=== PATIENT | male | born 1950 | race Caucasian/White ===

== ENCOUNTER → 2018-07-08 | Outpatient (CLI) | payer BC ==
--- NOTE | 2018-07-08 15:32 | SFUN ---
SLEEP CENTER FOLLOW UP NOTE DATE OF SERVICE: 07/08/2018 A 68-year-old gentleman who has been followed in the Sleep Center to discuss results of diagnostic polysomnogram and following plan. I discussed results of sleep study with the patient in detail. He had very low sleep efficiency. He slept only for 2 hours and 14 minutes, but at the same time sleep study showed that for that period of time, he had 18 episodes of obstructive apneas, 11 episodes of central apneas and 4 episodes of hypopneas with total apnea-hypopnea index 14.7, in REM sleep 65.5 with lowest oxygen level 77.3%. No significant periodic limb movements have been documented. [place] Sleepiness Scale today is 3. MEDICATIONS: Metoprolol, amlodipine with benazepril. PHYSICAL EXAM: Patient in no distress. BP , HR 68, RR 14, oxygen saturation at room air 96%, temperature 97.7 cm. OROPHARYNX: Low position of soft palate. Slight restriction of nasal breathing on the right side. Neck Supple, no JVD. Thyroid is not palpable. LUNGS Clear to percussion and to auscultation. Good air exchange. No wheezing or rhonchi. HEART S1, S2 regular. No murmurs, gallops, or rubs. ABDOMEN Soft and nontender. Bowel sounds are present. No organomegaly appreciated. EXTREMITIES No clubbing or cyanosis. [employer] Awake, alert, and oriented X3. Cranial nerves 2 to 7 intact. There is no fasciculation or atrophy. noted. No focal deficits observed. IMPRESSION: 1. Obstructive sleep apnea-hypopnea syndrome, apnea-hypopnea index is 14.7, in REM sleep 65.5 with oxygen desaturation to 77.3%. 2. No significant periodic limb movements have been documented during the sleep study. 3. Hypertension. 4. Some restriction of nasal breathing. PLAN: 1. We will try auto Pap with range of pressure 5-12. 2. Patient should use treatment every night for the whole night. 3. Sleep hygiene with time in bed for at least 7-1/2 to 8 hours. 4. No driving if feeling sleepiness. Thank you very much for allowing me to participate in the management of your patient. Sincerely, Lazaro Gold MD, PhD, FAASM Diplomat of [employer] [facility] [place] JACK / PATEL: [id number] /
== END | disposition home or self-care (01) ==
LOC: SLEEP 13:57
PROVIDERS: ATTEND Internal Medicine
DX: G47.33 Obstructive sleep apnea (adult) (pediatric) (principal); I10 Essential (primary) hypertension; R06.89 Other abnormalities of breathing; Z79.899 Other long term (current) drug therapy